=== PATIENT | male | born 1965 | race Caucasian/White ===

== ENCOUNTER → 2019-08-06 | Outpatient (CLI) | payer OTHER, SELFPAY | PROVIDERS: Family Provider Electrodiagnostic Medicine; Visit Provider Electrodiagnostic Medicine | DX: I51.7 Cardiomegaly (principal); R06.02 Shortness of breath; R06.2 Wheezing | CPT/HCPCS: 71046 ==

== ENCOUNTER 2021-09-18 18:48 | Emergency (ER) | payer OTHER, SELFPAY ==
[2021-09-18 18:55] VITALS: BP 171/112; PULSE 104; RESP 18; TEMP 36.8; O2SAT 99; BMI 32.6
--- NOTE | 2021-09-18 19:27 | ECG_ITS ---
[facility] Test Date: 2021-09-18 Pat Name: Dipesh Jon Department: Room: Gender: Male Administration Specialist: : [id number] Requested By: Lj Mckeon Order Number: [id number] Karen MD: DESIREE LUCERO Measurements Intervals Eure Rate: 90 P: 58 NM: 175 QRS: -25 QRSD: 89 T: 64 QT: 333 QTc: 408 Interpretive Statements SINUS RHYTHM LOW QRS VOLTAGE IN PRECORDIAL LEADS [QRS DEFLECTION < 1.0 mV IN CHEST LEADS] PATTERN CONSISTENT WITH PULMONARY DISEASE INFERIOR MYOCARDIAL INFARCTION , OF INDETERMINATE AGE [40+ ms Q WAVE AND/OR ST/T ABNORMALITY IN II/aVF] No previous ECG available for comparison Electronically Signed On 09-18-2021 22:54:26 TOBACCO EDUCATOR by DESIREE LUCERO [id number]
--- NOTE | 2021-09-18 19:27 | XRR_ITS ---
PROCEDURE INFORMATION: Exam: XR Chest Exam date and time: 09/18/2021 7:27 PM Age: 56 years old Clinical indication: Chest wall pain; Additional info: Chest pain TECHNIQUE: Imaging protocol: XR of the chest. Views: 1 view. COMPARISON: CR Chest 2 views* [id number] 08/06/2019 8:25 AM FINDINGS: Lungs: 5 mm calcified granuloma at the right lung apex. No consolidative pulmonary infiltrates are noted. Pleural spaces: No pleural effusion. No pneumothorax. Heart/Mediastinum: No cardiomegaly. Bones/joints: Degenerative spine changes are noted. XR/XR chest 1V portable [id number] IMPRESSION: 1. No acute abnormality demonstrated. 2. There is no interval change from the prior examination.
[2021-09-18] MEDS: lidocaine 2% viscous 15 ML, aluminum-mag hydrox-simethicon 30 ML, sucralfate oral liq 1 GM PO (20:25)
--- NOTE | 2021-09-18 21:21 | ED_ITS ---
HPI - Chest Pain General: Chief Complaint: Chest Pain Stated Complaint: Chest Pain\High Blood Pressure Time Seen by Provider: 09/18/21 20:09 Source: patient and family History of Present Illness: 56-year-old male with no prior history of coronary disease. He presents with chest pain that started last night. He was at rest when it started. He notes that occasionally beginning tonight, it radiated into his right arm. He is not overly short of breath. He states he has had a mild cough, no body aches. He notes that his had some stomach cramping last few days, and that has seemed worse as well. One episode of loose stool. No fever. He tested negative for COVID-19 2 days ago. MD complaint: chest pain Onset (ago): hour(s) (24) Timing of current episode: constant Onset: during rest Pain location: substernal and epigastric Pain radiation: right arm Severity: moderate Quality: tightness Relieving factors: nothing Exacerbating factors: nothing Associated symptoms: Reports abdominal pain and nausea; Deny diaphoresis, dyspnea, fever(s), leg edema, palpitations or vomiting Review of Systems Const: Denies: fever(s) or diaphoresis Card: Denies: palpitations Resp: Denies: dyspnea GI: Reports: abdominal pain and nausea; Denies: vomiting Physical Exam Const: GENERAL APPEARANCE: cooperative; not frail appearing HENMT: COMMON NORMALS: normocephalic and atraumatic HEAD & SCALP: normocephalic and atraumatic Eye: COMMON NORMALS: Equal, round and reactive pupils present and EOMs intact bilaterally PUPIL: Yes Equal, round and reactive pupils present Neck/C-Spine: COMMON NORMALS: full ROM Chest: COMMONS NORMALS: normal inspection of the chest CHEST: No tenderness Resp: COMMON NORMALS: normal respiratory effort, No use of accessory muscles and clear to auscultation bilaterally AUSCULTATION: clear to auscultation bilaterally Cardio: COMMON NORMALS: regular rate and regular rhythm RATE: regular rate RHYTHM: regular rhythm GI: COMMON NORMALS: Normal to inspection, nondistended, normoactive bowel sounds present and Soft to palpation PALPATION: Yes Soft to palpation and Yes Tenderness to palpation present (GI) (Epigastric) : COMMON NORMALS: Yes no CVA tenderness BLADDER/KIDNEY EXAM: Yes no CVA tenderness Back/Pelvis: COMMON NORMALS: no CVA tenderness Extremity: COMMON NORMALS: no pedal edema Neuro: TROY COMA SCALE: document GCS findings [place] coma scale eye o pening: Spontaneous [place] coma scale verbal response: Orientated [place] coma scale motor response: Obey commands [place] coma scale total score: 15 Course Vital Signs: Vital signs: Vital Signs Temperature 98.2 F 09/18/21 18:55 Pulse Rate 80 09/18/21 21:45 Respiratory Rate 14 09/18/21 21:45 Blood Pressure 139/81 09/18/21 21:45 Pulse Oximetry 96 09/18/21 21:45 MDM - Chest Pain Medical Decision Making Patient given a GI cocktail after his evaluation. Discomfort is completely resolved essentially. Hemoglobin is 15. White blood cell count 9.9. Sodium 137. Troponin is normal at 8. D-dimer is 0.3. Lipase is 43. Liver enzymes are normal. Counseled patient on his differential diagnosis. Chest x-ray is negative. EKG shows a sinus rhythm with no acute ST elevation. He will be allowed home on a PPI. Also counseled to stop naproxen as it may be worsening in his symptoms Lab Data : 09/18/21 20:41 09/18/21 20:41 Radiology Impressions Chest X-Ray 09/18/21 19:27 IMPRESSION: 1. No acute abnormality demonstrated. 2. There is no interval change from the prior examination. Laboratory Results WBC 9.9 10^3/uL (4.0-10.0) 09/18/21 20:41 RBC 5.16 10^6/uL (4.1-5.3) 09/18/21 20:41 Hgb 15.2 g/dL (11.7-16.6) 09/18/21 20:41 Hct 45.6 % (42.0-52.0) 09/18/21 20:41 MCV 88.4 fl (80-94) 09/18/21 20:41 MCH 29.5 pg (28.0-34.0) 09/18/21 20:41 MCHC 33.3 g/dL (30.0-36.0) 09/18/21 20:41 RDW 12.3 % (12.1-15.1) 09/18/21 20:41 Plt Count 243 10^3/cmm (130-400) 09/18/21 20:41 MPV 9.6 fL (7.4-10.4) 09/18/21 20:41 Neut % (Auto) 60.5 % 09/18/21 20:41 Lymph % (Auto) 28.9 % 09/18/21 20:41 [place] % (Auto) 7.3 % 09/18/21 20:41 Eos % (Auto) 2.2 % 09/18/21 20:41 Baso % (Auto) 0.7 % 09/18/21 20:41 Neut # (Auto) 5.95 10^3/uL (1.8-7.7) 09/18/21 20:41 Lymph # (Auto) 2.9 10^3/uL (0.8-4.8) 09/18/21 20:41 [place] # (Auto) 0.7 10^3/uL (0.2-0.9) 09/18/21 20:41 Eos # (Auto) 0.2 10^3/uL (0.0-0.8) 09/18/21 20:41 Baso # (Auto) 0.1 10^3/uL (0.0-0.1) 09/18/21 20:41 Nucleated RBC % (auto) 0 % 09/18/21 20: Nucleated RBCs # 0.0 /100WBC 09/18/21 20:41 D-Dimer 0.30 ug/mIFEU (0-0.59) 09/18/21 20:41 Sodium 137 mmol/L (136-145) 09/18/21 20:41 Chloride 103 mmol/L (98-107) 09/18/21 20:41 Carbon Dioxide 22 mmol/L (22-29) 09/18/21 20:41 BUN 17 mg/dL (6-20) 09/18/21 20:41 Creatinine 1.2 mg/dL (0.7-1.2) 09/18/21 20:41 Glucose 103 mg/dL (65-115) 09/18/21 20:41 Calculated Osmolality 286 mOsm/kg (285-295) 09/18/21 20:41 Calcium 9.8 mg/dL (8.5-10.5) 09/18/21 20:41 Total Bilirubin 0.2 mg/dL (0.15-1.2) 09/18/21 20:41 ALT 19 U/L (0-41) 09/18/21 20:41 Alkaline Phosphatase 68 IU/L (40-130) 09/18/21 20:41 Troponin T Baseline 8 ng/L (0-15) 09/18/21 20:41 C-Reactive Protein 3.0 mg/L (0.0-4.9) 09/18/21 20:41 Total Protein 6.8 g/dL (6.6-8.7) 09/18/21 20:41 Albumin 4.5 g/dL (3.5-5.2) 09/18/21 20:41 Globulin 2.3 g/dL (1.3-4.6) 09/18/21 20:41 Lipase 43 U/L (13-60) 09/18/21 20:41 Procalcitonin 0.05 ng/mL (0-0.5) 09/18/21 20:41 Discharge Plan Discharge Patient Disposition: Home Clinical Impression: Atypical chest pain, Gastritis Condition: Stable Prescriptions: New lansoprazole [Prevacid] 30 mg capsule,delayed release(DR/EC) 30 mg PO DAILY Qty: 30 0RF No Action multivitamin Tablet 1 tab PO DAILY 0RF vitamin E 1,000 unit Capsule 1,000 unit PO DAILY 0RF Zyrtec 10 mg Tablet 10 mg PO DAILY 0RF tizanidine 4 mg tablet 4 mg PO BEDTIME PRN (Reason: Muscle Pain) 0RF naproxen 500 mg tablet 500 mg PO BID 0RF Vitamin D3 25 mcg (1,000 unit) Capsule 25 mcg PO DAILY 0RF escitalopram oxalate 20 mg tablet 20 mg PO DAILY 0RF Cinnamon 500 mg Capsule 500 mg PO DAILY 0RF [place] 3 Fish Oil 900-1,400 mg Capsule,Delayed Release(Dr/Ec) 1 cap PO DAILY 0RF Discharge Orders: Discharge ED (Routine); Ordered 09/18/21 Ordered By: Noah De Luna Discharge Diet: Advance as tolerated Discharge Activity: Increase activity as tolerated Patient Instructions: Chest Pain (ED), Gastritis (ED) Activity Restrictions/Additional Instructions: Return to the emergency department for return of or worsening chest discomfort, shortness of breath, fever greater than 100, cough, other concerning symptoms. Consider stopping your naproxen, as it can cause inflammation in the lining of your stomach as well. Medication as directed follow-up with your doctor Coding Level of Care Code ED Commercial Sales Manager for Chg Fwd Exam Comprehensive
[2021-09-18 21:33] LABS: Troponin(5th) Baseline 8 ng/L (0-15)
[2021-09-18 21:42] LABS: Procalcitonin 0.05 ng/mL (0-0.5)
[2021-09-18 21:43] LABS: Basophils # 0.1 10^3/uL (0.0-0.1); Basophils % 0.7 %; Eosinophils # 0.2 10^3/uL (0.0-0.8); Eosinophils % 2.2 %; Hematocrit 45.6 % (42.0-52.0); Hemoglobin 15.2 g/dL (11.7-16.6); Lymphocytes # 2.9 10^3/uL (0.8-4.8); Lymphocytes % 28.9 %; Mean Corpuscular HGB Conc 33.3 g/dL (30.0-36.0); Mean Corpuscular Hemoglobin 29.5 pg (28.0-34.0); Mean Corpuscular Volume 88.4 fl (80-94); Mean Platelet Volume 9.6 fL (7.4-10.4); Monocytes # 0.7 10^3/uL (0.2-0.9); Monocytes % 7.3 %; Neutrophils # 5.95 10^3/uL (1.8-7.7); Neutrophils % 60.5 %; Nucleated Red Blood Cells % 0 %; Platelet Count 243 10^3/cmm (130-400); Red Blood Count 5.16 10^6/uL (4.1-5.3); Red Cell Distribution Width 12.3 % (12.1-15.1); White Blood Count 9.9 10^3/uL (4.0-10.0)
[2021-09-18 21:45] VITALS: BP 139/81; PULSE 80; RESP 14; O2SAT 96
[2021-09-18 21:57] LABS: Alanine Aminotransferase 19 U/L (0-41); Albumin Level 4.5 g/dL (3.5-5.2); Alkaline Phosphatase 68 IU/L (40-130); Blood Urea Nitrogen 17 mg/dL (6-20); Calcium 9.8 mg/dL (8.5-10.5); Carbon Dioxide 22 mmol/L (22-29); Chloride 103 mmol/L (98-107); Globulin 2.3 g/dL (1.3-4.6); Glomerular Filtration Rate 62.4 mL/min (90-130); Glucose 103 mg/dL (65-115); Lipase 43 U/L (13-60); Osmolality Calculated 286 mOsm/kg (285-295); Sodium 137 mmol/L (136-145); Total Bilirubin 0.2 mg/dL (0.15-1.2); Total Protein 6.8 g/dL (6.6-8.7)
[2021-09-18 22:13] LABS: Anion Gap 16.8 (5-19); Aspartate Amino Transferase 21 U/L (0-40); Potassium 4.8 mmol/L (3.5-5.1)
[2021-09-18] MEDS: pantoprazole DR 40 mg Tablet PO (22:20)
== END 2021-09-18 22:21 | disposition home or self-care (01) ==
PROVIDERS: Emergency Medicine; Emergency Provider Emergency Medicine
DX: R07.89 Other chest pain (principal); K29.70 Gastritis, unspecified, without bleeding
CPT/HCPCS: 71045; 80053; 83690; 84145; 84484; 85025; 85378; 86140; 93005; 99283